=== PATIENT | female | born 1990 | race Caucasian/White ===

== ENCOUNTER 2016-11-25 07:57 | Day surgery (SDC) | payer BC ==
[2016-11-25] VITALS (11 sets, daily range): BP systolic 97–123; BP diastolic 54–72; PULSE 59–92; RESP 16–23
[~2016-11-25] VITALS: Ht 121.9 cm; Wt 44.9 kg
[2016-11-25] MEDS ORDERED: BUPIVACAINE 0.5%/EPI (SDV) 10 ML INJ ONE (10:12)
[2016-11-25 10:19] LABS: BASOPHILS % 1.2 % (0.0-2.0); EOSINOPHILS # 0.1 10^3/ul (0.0-0.5); EOSINOPHILS % 3.8 % (0.0-7.0); HEMATOCRIT 37.8 % (37.0-47.0); HEMOGLOBIN 12.9 g/dl (12.0-16.0); LYMPHOCYTES # 1.6 10^3/ul (0.8-2.9); LYMPHOCYTES % 46.2 % (15.0-51.0); MEAN CORPUSCULAR HEMOGLOBIN 31.1 pg (29.0-33.0); MEAN CORPUSCULAR HGB CONC 34.1 g/dl (32.0-37.0); MEAN CORPUSCULAR VOLUME 91.1 fl (82.0-101.0); MEAN PLATELET VOLUME 10.3 fl (7.4-10.4); MONOCYTE # 0.3 10^3/ul (0.3-0.9); MONOCYTES % 9.9 % (0.0-11.0); NEUTROPHILS % 38.9 % (39.0-77.0); PLATELET COUNT 209 10^3/UL (140-415); RED BLOOD COUNT 4.15 10^6/ul (4.20-5.40); WHITE BLOOD COUNT 3.4 10^3/ul (4.8-10.8)
[2016-11-25] MEDS ORDERED: CEFAZOLIN 1 GM INJ ONE (10:33)
[2016-11-25] MEDS ORDERED: FENTAnyl 50 MCG/ML VIAL ONE (10:33)
[2016-11-25] MEDS ORDERED: MIDAZOLAM 1 MG/ML 2 ML INJ ONE (10:33)
[2016-11-25] MEDS ORDERED: ROCURONIUM 50 MG INJ ONE (10:33)
[2016-11-25] MEDS ORDERED: GLYCOPYRROLATE 0.4 MG INJ ONE (10:33)
[2016-11-25] MEDS ORDERED: DEXAMETHASONE 4 MG/ML 1 ML INJ ONE (10:33)
[2016-11-25] MEDS ORDERED: NEOSTIGMINE 3 MG/3 ML SYRINGE ONE (10:33)
[2016-11-25] MEDS ORDERED: PROPOFOL 20 ML ONE (10:33)
[2016-11-25] MEDS ORDERED: ONDANSETRON 4 MG INJ ONE (10:33)
[2016-11-25] MEDS ORDERED: METOCLOPRAMIDE 10 MG INJ ONE (11:46)
[2016-11-25] MEDS ORDERED: KETOROLAC 30 MG INJ ONE (11:46)
--- NOTE | 2016-11-25 11:56 | SIPON ---
Date/Time of Note Date/Time of Note DATE: 11/25/16 TIME: 11:54 Operative Report Preoperative Diagnosis Voluntary sterilization Postoperative Diagnosis Same Operation/Procedure Performed Minilaparotomy, bilateral tubal ligation Surgeon: GINI JAMES MD Anesthesia Type: general Estimated Blood Loss: minimal Transfusion Required: no Specimens right and left Fallopian tubes Grafts/Implants: none Complications: no GINI JAMES MD Nov 25, 2016 11:56
[2016-11-25] MEDS ORDERED: IPRATROPIUM (NEB) 0.5 MG/2.5 ML AMP HHN PRN (12:00)
[2016-11-25] MEDS ORDERED: EPHEDrine SULFATE 50 MG/5 ML SYG IV PRN (12:00)
[2016-11-25] MEDS ORDERED: FENTAnyl 50 MCG/ML VIAL IV PRN ×3 (12:00)
[2016-11-25] MEDS ORDERED: morphine 2 MG INJ IV PRN (12:00)
[2016-11-25] MEDS ORDERED: hydrALAzine 20 MG INJ IV PRN (12:00)
[2016-11-25] MEDS ORDERED: ALBUTEROL 0.083% (NEB) 2.5 MG/3 ML AMP HHN PRN (12:00)
[2016-11-25] MEDS ORDERED: ONDANSETRON 4 MG INJ IV PRN ×2 (12:00)
[2016-11-25] MEDS ORDERED: OXYCODONE/ACETAMINOPHEN (5/325) TAB PO PRN ×2 (12:00)
[2016-11-25] MEDS ORDERED: MIDAZOLAM 1 MG/ML 2 ML INJ IV PRN (12:00)
[2016-11-25] MEDS ORDERED: DIPHENHYDRAMINE 50 MG INJ IV PRN (12:00)
[2016-11-25] MEDS ORDERED: MEPERIDINE 25 MG INJ IV PRN (12:00)
[2016-11-25] MEDS ORDERED: HYDROmorphONE (0.2 MG/ML) 10ML SYG IV PRN ×3 (12:00)
[2016-11-25] MEDS ORDERED: TRIMETHOBENZAMIDE 100 MG/ML VIAL IM PRN (12:00)
[2016-11-25] MEDS ORDERED: HYDROCODONE/APAP (5/325) TAB PO PRN (12:00)
[2016-11-25] MEDS ORDERED: LABETALOL HCL 20MG INJ IV PRN (12:00)
[2016-11-25] MEDS ORDERED: KETOROLAC 30 MG INJ IV PRN (12:00)
[2016-11-25] MEDS ORDERED: MEPERIDINE 25 MG INJ ONE (12:09)
--- NOTE | 2016-11-25 12:32 | OPR ---
DATE OF OPERATION: 11/25/2016 PREOPERATIVE DIAGNOSIS: Voluntary sterilization. POSTOPERATIVE DIAGNOSIS: Voluntary sterilization. OPERATION PERFORMED: Mini-laparotomy and bilateral tubal ligation. SURGEON: Dr. Lopez. FIRE INVESTIGATION LIEUTENANT: automotive lube technician. ANESTHESIA: General. ANESTHESIOLOGIST: Dr. Pittman. OPERATIVE PROCEDURE: The patient was taken to the operating room, and placed on the operating table in supine position. After adequate general anesthesia was given, the area was prepared and draped in the usual sterile fashion. Using a scalpel, Pfannenstiel incision was made about 2 fingerbreadths above the symphysis pubis. The incision was carried to the fascia. The fascia was incised and extended bilaterally with Gambino scissors. Two Fannie's were used to separate the fascia from the muscle. The muscle was dissected in the midline down to the peritoneum. The peritoneum was secured with Kellys and incised with Metzenbaum scissors. The right fallopian tube was grasped with a [place] clamp and followed to its fimbriated end to confirm its identity. Using 0 plain suture ligature, a 5 cm segment of the right fallopian tube was doubly ligated. Using Metzenbaum scissors, a portion of the right fallopian tube above the ligated area was excised and sent to Pathology. The same procedure was repeated on the left fallopian tube. After assuring hemostasis, the peritoneum was closed with 0 chromic. The fascia was closed with 0 Vicryl continuous. The skin was closed with john. ESTIMATED BLOOD LOSS: Minimal. COUNTS: All counts were correct. Dictated By: Frank Lopez MD /anaid/karin /Document#: [id number]
--- NOTE | 2016-11-25 12:38 | PREOPHP ---
DATE OF ADMISSION: 11/25/2016 HISTORY OF PRESENT ILLNESS: A 26-year-old female, 3, para 2, AB 1, last menstrual period 10/31/2016 is admitted for voluntary sterilization. PAST MEDICAL HISTORY: Unremarkable. PAST SURGICAL HISTORY: section times 2. ALLERGIES: NO KNOWN ALLERGIES. FAMILY HISTORY: Noncontributory. PHYSICAL EXAMINATION: VITAL SIGNS: Patient is afebrile. Vital signs stable. HEAD, NECK, AND CHEST: Within normal limits. ABDOMEN: Soft, nontender, nondistended. PELVIC: Normal. EXTREMITIES AND NEUROLOGIC: Within normal limits. IMPRESSION: Voluntary sterilization. PLAN: Mini laparotomy and bilateral tubal ligation. Risks, benefits, and alternatives of procedure were explained to the patient. The patient has been counseled about all of her contraceptive options including all methods of sterilization. It was explained to the patient that with bilateral tubal ligation there is a chance of failure resulting in ectopic and/or intrauterine . After counseling, the patient states she understood and gave informed consent for the procedure. Dictated By: Frank Lopez MD /anaid/sang /Document#: [id number]
== END 2016-11-25 13:38 | disposition home or self-care (01) ==
LOC: SDS 07:57
PROVIDERS: ATTEND Obstetrics & Gynecology
DX: Z30.2 Encounter for sterilization (principal)
CPT/HCPCS: 58600; 84703; 85025; 86850; 86900; 86901; 88302; J0690; J1100; J1885; J2175; J2250; J2405; J2710; J2765; J3010; Z7512; Z7610